=== PATIENT | female | born 1995 | race Caucasian/White ===

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

== ENCOUNTER 2017-06-02 13:18 | Emergency (ER) | payer SELFPAY ==
[~2017-06-02 13:18] MED LIST changes: +Sodium Chloride 0.9% 1,000 ML BAG ONE; -Sodium Chloride 0.9% 100 ML BAG ONE
[2017-06-02 15:24] LABS: Clarity Clear (Clear); Glucose, Urine (Dipstick) Negative (Negative); Leukocyte Trace (Negative); Nitrite Negative (Negative); Protein, Urine (Dipstick) 30 mg/dL (Neg-Trace)
[2017-06-02 15:25] LABS: Bacteria/HPF None Seen HPF (None Seen); Bilirubin Negative (Negative); Blood, Urine Trace (Negative); Pregnancy Test - Urine (BHCG) Negative (Negative); Pregu Control Background? CLEAR/WHITE (CLR/WHITE); Pregu Control Bar Appear? YES (CONTROL BAR); RBC/HPF 0-3 HPF (0-3); WBC/HPF 0-3 HPF (0-3)
--- NOTE | 2017-06-02 15:39 | CT ---
CT ABDOMEN NONCONTRAST CT PELVIS NONCONTRAST: (urolithiasis protocol) Date: 06/02/17 HISTORY: 22-year-old female with right flank pain for 5 days, recently worsening. TECHNIQUE: IV injection of iodinated contrast media: none Oral contrast media: none FINDINGS: Other than for urolithiasis, the lack of IV and oral contrast limits the evaluation. Kidneys: No nephrolithiasis or overt hydronephrosis. Ureters: No calculi. Bladder: No calculi. IMPRESSION: No urolithiasis. ida [] POS: [facility]
[2017-06-02] MEDS ORDERED: Morphine 4 MG/ML VIAL ONE ×3 (15:51→19:20)
[2017-06-02 16:06] LABS: #Basophils 0.1 thou/uL (0.0-0.2); #Lymphocytes 2.3 thou/uL (1.20-3.40); #Monocytes 0.5 thou/uL (0.11-0.59); #Neutrophils 7.4 thou/uL (1.40-6.50); %Basophils 0.7 % (0.0-1.0); %Eosinophils 0.4 % (0.0-10.0); %Lymphocytes 22.5 % (28.0-48.0); %Neutrophils 71.4 % (31.0-61.0); Hemoglobin 15.4 g/dL (12.0-16.0); Mean Corpuscular HGB CONC 35.2 g/dL (32.0-36.0); Mean Corpuscular Hemoglobin 32.8 pg (25.0-35.0); Mean Platelet Volume 8.5 fL (7.4-10.4); Platelet Count 204 thou/uL (130-400); RBC Distribution Width 11.3 % (11.5-14.5); White Blood Cell (WBC) Count 10.3 thou/uL (4.8-10.8)
[2017-06-02] MEDS ORDERED: Ondansetron HCl/PF 4 MG/2 ML Vial ONE (16:11)
[2017-06-02 16:23] LABS: ALT (SGPT) 13 U/L (8-55); AST (SGOT) 15 U/L (5-34); Albumin 4.5 g/dL (3.5-5.0); Alkaline Phosphatase 91 U/L (40-150); Anion Gap 16 mmol/L (10-20); BUN (Urea Nitrogen) 10 mg/dL (7.0-18.7); Bilirubin, Total 0.5 mg/dL (0.2-1.2); Calc. Creatinine Clearance 0 mL/min (70-130); Calcium 9.6 mg/dL (7.8-10.44); Carbon Dioxide 21 mmol/L (22-29); Chloride 106 mmol/L (98-107); Estimated GFR-MDRD Greater than 90; Globulin 3.4 g/dL (2.4-3.5); Glucose 86 mg/dL (70-105); Protein, Total 7.9 g/dL (6.0-8.3); Sodium 139 mmol/L (136-145)
--- NOTE | 2017-06-02 19:31 | CT ---
CT ABDOMEN AND PELVIS WITH CONTRAST 06/02/17 HISTORY: Pain. Right lower quadrant and flank pain. COMPARISON: CT stone protocol same day. FINDINGS: The lung bases are clear. No pericardial effusion. The appendix is visualized and is normal. No inflammatory stranding in the abdomen or pelvis. The urinary bladder is moderately distended. Both ovaries are visualized. No dilated loops of large or small bowel. No evidence for bowel obstruction. There is mild thickening of the terminal ileum. The aortoiliac contour is normal. The pancreas is unremarkable. The spleen, liver, and gallbladder ar e all unremarkable. The skeleton is unremarkable. IMPRESSION: 1. Normal appendix. 2. Mild mucosal edema and thickening of the terminal ileum suggests terminal ileitis. This may b e infectious or inflammatory. Inflammatory bowel disease can have this appearance. POS: [facility]
== END 2017-06-02 20:05 | disposition short-term general hospital (02) ==
LOC: MADERS 13:18
DX: K50.00 Crohn's disease of small intestine without complications (principal)
CPT/HCPCS: 36415; 74176; 74177; 80053; 81003; 81015; 81025; 83605; 85025; 96374; 96375; 96376; J2270; J2405; J7050

== ENCOUNTER 2017-06-12 09:55 | Emergency (ER) | payer SELFPAY ==
[~2017-06-12 09:55] MED LIST changes: -Iopamidol 370 76% 100 ML VIAL ONE
[2017-06-12] MEDS ORDERED: Ketorolac Tromethamine 30 MG/ML VIAL ONE (10:29)
[2017-06-12 10:37] LABS: #Eosinphils 0.2 thou/uL (0.0-0.7); #Monocytes 0.4 thou/uL (0.11-0.59); #Neutrophils 5.5 thou/uL (1.40-6.50); %Basophils 0.5 % (0.0-1.0); %Eosinophils 2.1 % (0.0-10.0); %Lymphocytes 24.4 % (28.0-48.0); %Monocytes 5.4 % (0.0-4.0); %Neutrophils 67.6 % (31.0-61.0); Hemoglobin 14.7 g/dL (12.0-16.0); Mean Corpuscular HGB CONC 35.1 g/dL (32.0-36.0); Mean Corpuscular Hemoglobin 32.5 pg (25.0-35.0); Mean Corpuscular Volume 92.5 fl (77.0-87.0); Platelet Count 201 thou/uL (130-400); RBC Distribution Width 11.6 % (11.5-14.5); Red Blood Cell (RBC) Count 4.52 mill/uL (4.00-5.20); White Blood Cell (WBC) Count 8.2 thou/uL (4.8-10.8)
[2017-06-12 10:42] LABS: BHCG - Serum Negative (NEGATIVE); Pregs Control Background? CLEAR/WHITE (CLR/WHITE); Pregs Control Bar Appear? YES (CONTROL BAR)
[2017-06-12] MEDS ORDERED: Ondansetron HCl/PF 4 MG/2 ML Vial ONE (10:51)
[2017-06-12 10:53] LABS: ALT (SGPT) 20 U/L (8-55); AST (SGOT) 24 U/L (5-34); Albumin 4.1 g/dL (3.5-5.0); Alkaline Phosphatase 90 U/L (40-150); Anion Gap 14 mmol/L (10-20); BUN (Urea Nitrogen) 10 mg/dL (7.0-18.7); Calc. Creatinine Clearance 0 mL/min (70-130); Carbon Dioxide 21 mmol/L (22-29); Chloride 108 mmol/L (98-107); Estimated GFR-MDRD Greater than 90; Glucose 96 mg/dL (70-105); Lipase 14 U/L (8-78); Protein, Total 7.1 g/dL (6.0-8.3); Sodium 139 mmol/L (136-145)
[2017-06-12 10:59] LABS: Bilirubin, Total 0.4 mg/dL (0.2-1.2)
[2017-06-12 11:14] LABS: Bilirubin Negative (Negative); Blood, Urine Negative (Negative); Clarity Clear (Clear); Glucose, Urine (Dipstick) Negative (Negative); Leukocyte Negative (Negative); Nitrite Negative (Negative); Protein, Urine (Dipstick) Negative (Neg-Trace); Urobilinogen 0.2 mg/dL (0.2-1.0)
[2017-06-12] MEDS ORDERED: Morphine 4 MG/ML VIAL ONE ×4 (11:24→14:16)
[2017-06-12] MEDS ORDERED: Iopamidol 370 76% 100 ML VIAL ONE (12:42)
[2017-06-12] MEDS ORDERED: Fentanyl 100 MCG/2 ML VIAL ONE (14:54)
--- NOTE | 2017-06-12 15:33 | CT ---
ABDOMEN AND PELVIS CT WITH CONTRAST: Date: 06/12/17 COMPARISON: 06/02/17. INDICATION: Pain. FINDINGS: There is no consolidation at the lung base. Solid abdominal organs are grossly unremarkable. Bowel is not reliably assessed without enteric contrast administration. There is marked distention of the vanessa pacified urinary bladder. Trace free pelvic fluid is present, which may be physiologic, given patient 's age. There is no acute osseous pathology. IMPRESSION: 1. No acute abnormality identified. 2. There is limited evaluation of the bowel without enteric contrast. 3. Prominent distention of urinary bladder. Correlate clinically. POS: [facility]
[2017-06-15 01:57] LABS: Chlamydia by PCR Not Detected (NotDetected); GC by PCR Not Detected (NotDetected)
== END 2017-06-12 15:19 | disposition short-term general hospital (02) ==
LOC: MADERS 09:55
DX: R10.2 Pelvic and perineal pain (principal); F32.9 Major depressive disorder, single episode, unspecified; F17.210 Nicotine dependence, cigarettes, uncomplicated
CPT/HCPCS: 74177; 80053; 81003; 83690; 84703; 85025; 87491; 87591; 96361; 96374; 96375; 96376; J1885; J2270; J2405; J3010; J7050

== ENCOUNTER 2017-07-04 15:21 | Emergency (ER) | payer BC, MEDICAID, SELFPAY ==
[~2017-07-04 15:21] MED LIST changes: +Iopamidol 370 76% 125 ML VIAL FS ONE
[2017-07-04] MEDS ORDERED: Morphine 4 MG/ML VIAL ONE ×2 (15:43→16:44)
[2017-07-04] MEDS ORDERED: Ondansetron HCl/PF 4 MG/2 ML Vial ONE (15:44)
[2017-07-04] MEDS ORDERED: Ketorolac Tromethamine 30 MG/ML VIAL ONE (15:44)
[2017-07-04 15:56] LABS: #Basophils 0.1 thou/uL (0.0-0.2); #Eosinphils 0.1 thou/uL (0.0-0.7); #Monocytes 0.6 thou/uL (0.11-0.59); #Neutrophils 4.8 thou/uL (1.40-6.50); %Basophils 0.7 % (0.0-1.0); %Eosinophils 0.9 % (0.0-10.0); %Monocytes 7.7 % (0.0-4.0); %Neutrophils 63.7 % (31.0-61.0); Hemoglobin 14.9 g/dL (12.0-16.0); Mean Corpuscular HGB CONC 34.8 g/dL (32.0-36.0); Mean Corpuscular Hemoglobin 32.8 pg (25.0-35.0); Mean Corpuscular Volume 94.3 fl (77.0-87.0); Mean Platelet Volume 8.5 fL (7.4-10.4); Platelet Count 174 thou/uL (130-400); Red Blood Cell (RBC) Count 4.54 mill/uL (4.00-5.20); White Blood Cell (WBC) Count 7.5 thou/uL (4.8-10.8)
[2017-07-04 16:06] LABS: Bilirubin Negative (Negative); Blood, Urine Trace (Negative); Clarity Clear (Clear); Glucose, Urine (Dipstick) Negative (Negative); Leukocyte Negative (Negative); Nitrite Negative (Negative); Protein, Urine (Dipstick) Negative (Neg-Trace); Urobilinogen 0.2 mg/dL (0.2-1.0)
[2017-07-04 16:09] LABS: RBC/HPF 0-3 HPF (0-3)
[2017-07-04 16:10] LABS: Bacteria/HPF Rare-Few HPF (None Seen); Squamous Epithelial 0-3 HPF (0-3); WBC/HPF 0-3 HPF (0-3)
[2017-07-04 16:11] LABS: AST (SGOT) 13 U/L (5-34); Alkaline Phosphatase 85 U/L (40-150); Anion Gap 13 mmol/L (10-20); BUN (Urea Nitrogen) 6 mg/dL (7.0-18.7); Bilirubin, Total 0.4 mg/dL (0.2-1.2); Calc. Creatinine Clearance 0 mL/min (70-130); Calcium 8.5 mg/dL (7.8-10.44); Carbon Dioxide 24 mmol/L (22-29); Chloride 108 mmol/L (98-107); Estimated GFR-MDRD Greater than 90; Globulin 2.8 g/dL (2.4-3.5); Glucose 94 mg/dL (70-105); Lipase 12 U/L (8-78); Potassium 3.6 mmol/L (3.5-5.1); Protein, Total 6.8 g/dL (6.0-8.3); Sodium 141 mmol/L (136-145)
[2017-07-04 16:44] LABS: ALT (SGPT) 10 U/L (8-55)
--- NOTE | 2017-07-04 17:16 | CT ---
CT CHEST AND ABDOMEN AND PELVIS WITH IV CONTRAST: INDICATIONS: A 22-kg-old female with abdominal tenderness and rib pain. The patient is also complaining of right upper quadrant abdominal pain. COMPARISON: CT abdomen and pelvis dated 06/12/2017. FINDINGS: No focal consolidation, pleural effusion, or pneumothorax is evident. No enlarged lymph nodes are pr esent. The heart and great vessels appear within normal limits. No focal hepatic lesion is evident. The visualized aspects of the gallbladder, pancreas, spleen, adr enal glands, and kidneys appear within normal limits. No hydronephrosis is evident. No free fluid i s demonstrated. There is a normal appendix in the right lower quadrant. No free fluid is evident. The bladder, rect um, and perirectal soft tissues appear within normal limits. There is mild thoracolumbar scoliosis. There is a healing right transverse process fracture of L3. IMPRESSION: 1. Healing right L3 transverse process fracture. 2. No acute cardiopulmonary abnormalities demonstrated. 3. No definite acute intraabdominal abnormality or intrapelvic abnormality is seen. POS: [facility]
== END 2017-07-04 17:30 | disposition home or self-care (01) ==
LOC: MADERS 15:21
DX: S22.31XA Fracture of one rib, right side, initial encounter for closed fracture (principal); F17.210 Nicotine dependence, cigarettes, uncomplicated; W19.XXXA Unspecified fall, initial encounter
CPT/HCPCS: 36415; 71260; 74177; 80053; 81001; 82150; 83690; 85025; 87086; 96361; 96374; 96375; 96376; J1885; J2270; J2405; J7050

== ENCOUNTER 2017-07-07 21:13 | Emergency (ER) | payer BC, MEDICAID ==
[2017-07-07] MEDS ORDERED: Ketorolac Tromethamine 60 MG/2 ML VIAL ONE (22:11)
[2017-07-07] MEDS ORDERED: Ondansetron ODT 4 MG TAB ONE (22:11)
[2017-07-07 22:15] LABS: #Basophils 0.1 thou/uL (0.0-0.2); #Eosinphils 0.1 thou/uL (0.0-0.7); #Lymphocytes 2.7 thou/uL (1.20-3.40); #Monocytes 0.8 thou/uL (0.11-0.59); #Neutrophils 11.5 thou/uL (1.40-6.50); %Basophils 0.6 % (0.0-1.0); %Eosinophils 0.7 % (0.0-10.0); %Lymphocytes 17.8 % (28.0-48.0); %Monocytes 5.1 % (0.0-4.0); %Neutrophils 75.8 % (31.0-61.0); Hemoglobin 14.7 g/dL (12.0-16.0); Mean Corpuscular HGB CONC 34.8 g/dL (32.0-36.0); Mean Corpuscular Hemoglobin 32.4 pg (25.0-35.0); Mean Corpuscular Volume 93.2 fl (77.0-87.0); Mean Platelet Volume 8.6 fL (7.4-10.4); Platelet Count 210 thou/uL (130-400); RBC Distribution Width 12.1 % (11.5-14.5); Red Blood Cell (RBC) Count 4.53 mill/uL (4.00-5.20); White Blood Cell (WBC) Count 15.2 thou/uL (4.8-10.8)
[2017-07-07 22:19] LABS: Bilirubin Negative (Negative); Blood, Urine Small (Negative); Glucose, Urine (Dipstick) Negative (Negative); Leukocyte Negative (Negative); Nitrite Negative (Negative); Protein, Urine (Dipstick) Trace mg/dL (Neg-Trace); Specific Gravity, Urine 1.025 (1.005-1.030); Urobilinogen 0.2 mg/dL (0.2-1.0)
[2017-07-07 22:22] LABS: Pregnancy Test - Urine (BHCG) Negative (Negative); Pregu Control Background? CLEAR/WHITE (CLR/WHITE); Pregu Control Bar Appear? YES (CONTROL BAR); Specific Gravity 1.025 (1.002-1.036)
[2017-07-07 22:27] LABS: Anion Gap 15 mmol/L (10-20); BUN (Urea Nitrogen) 20 mg/dL (7.0-18.7); Calc. Creatinine Clearance 0 mL/min (70-130); Calcium 9.7 mg/dL (7.8-10.44); Carbon Dioxide 23 mmol/L (22-29); Chloride 106 mmol/L (98-107); Estimated GFR-MDRD 89; Glucose 89 mg/dL (70-105); Potassium 4.1 mmol/L (3.5-5.1); Sodium 140 mmol/L (136-145)
[2017-07-07 22:27] LABS: Clarity Hazy (Clear)
[2017-07-07 22:37] LABS: WBC/HPF 0-3 HPF (0-3)
[2017-07-07 22:38] LABS: Bacteria/HPF Rare-Few HPF (None Seen)
--- NOTE | 2017-07-07 22:58 | RAD ---
CHEST ONE VIEW TWO VIEWS ABDOMEN 07/07/17 HISTORY: Rib pain. Cough. COMPARISON: None. FINDINGS: ONE VIEW CHEST: Normal cardiac silhouette. Pulmonary vessels and hilum are normal. Costophrenic angles are clear. No mass. No consolidation. No pneumothorax or osseous abnormalities. ABDOMEN TWO VIEWS: Nonspecific bowel gas pattern. Fecal material in a nondistended, nondilated colon. No suspicious dens ities in the abdomen or pelvis. No pneumoperitoneum. Mild leftward curvature of the lumbar spine. IMPRESSION: 1. No acute cardiopulmonary process. 2. Nonspecific bowel gas pattern. POS: [facility]
== END 2017-07-07 23:00 | disposition home or self-care (01) ==
LOC: MADERS 21:13
DX: J06.9 Acute upper respiratory infection, unspecified (principal); R07.81 Pleurodynia; K59.00 Constipation, unspecified; F17.210 Nicotine dependence, cigarettes, uncomplicated
CPT/HCPCS: 36415; 74022; 80048; 81003; 81015; 81025; 85025; 96372; J1885; Q0162

== ENCOUNTER 2019-02-08 10:20 | Emergency (ER) | payer MEDICAID ==
[2019-02-08] MEDS ORDERED: Prochlorperazine 10 MG/2 ML VIAL ONE (10:39)
[2019-02-08 10:47] LABS: Bilirubin Negative (Negative); Blood, Urine Small (Negative); Clarity Clear (Clear); Glucose, Urine (Dipstick) Negative (Negative); Leukocyte Trace (Negative); Nitrite Positive (Negative); Protein, Urine (Dipstick) Negative (Neg-Trace); Urobilinogen 0.2 mg/dL (Less than 2)
[2019-02-08 10:53] LABS: Bacteria/HPF 2+ HPF (None Seen); Pregnancy Test - Urine (BHCG) Negative (Negative); RBC/HPF 0-3 HPF (0-3)
[2019-02-08 10:54] LABS: Pregu Control Background? CLEAR/WHITE (CLR/WHITE); Pregu Control Bar Appear? YES (CONTROL BAR); Specific Gravity 1.024 (1.002-1.036)
[2019-02-08] MEDS ORDERED: Sodium Chloride 0.9% 1,000 ML ONE (11:14)
[2019-02-08 11:23] LABS: #Basophils 0.1 thou/uL (0.0-0.2); #Eosinphils 0.1 thou/uL (0.0-0.7); #Lymphocytes 0.6 thou/uL (1.20-3.40); #Monocytes 0.7 thou/uL (0.11-0.59); #Neutrophils 14.5 thou/uL (1.40-6.50); %Basophils 0.6 % (0.0-1.0); %Eosinophils 0.5 % (0.0-10.0); %Lymphocytes 3.4 % (21.0-51.0); %Monocytes 4.6 % (0.0-10.0); %Neutrophils 90.9 % (42.0-75.0); Hemoglobin 14.4 g/dL (12.0-16.0); Mean Corpuscular HGB CONC 34.3 g/dL (32.0-36.0); Mean Corpuscular Hemoglobin 30.5 pg (27.0-31.0); Mean Corpuscular Volume 88.9 fL (78.0-98.0); Mean Platelet Volume 7.4 fL (7.4-10.4); Platelet Count 155 thou/uL (130-400); RBC Distribution Width 10.9 % (11.5-14.5); Red Blood Cell (RBC) Count 4.71 mill/uL (4.20-5.40); White Blood Cell (WBC) Count 15.9 thou/uL (4.8-10.8)
[2019-02-08 11:37] LABS: ALT (SGPT) 9 U/L (8-55); AST (SGOT) 15 U/L (5-34); Albumin 4.5 g/dL (3.5-5.0); Alkaline Phosphatase 85 U/L (40-150); Anion Gap 15 mmol/L (10-20); BUN (Urea Nitrogen) 15 mg/dL (7.0-18.7); Bilirubin, Total 0.5 mg/dL (0.2-1.2); Calc. Creatinine Clearance 0 mL/min (70-130); Carbon Dioxide 22 mmol/L (22-29); Chloride 107 mmol/L (98-107); Estimated GFR-MDRD Greater than 90; Globulin 3.2 g/dL (2.4-3.5); Glucose 104 mg/dL (70-105); Potassium 4.2 mmol/L (3.5-5.1); Protein, Total 7.7 g/dL (6.0-8.3); Sodium 140 mmol/L (136-145)
[2019-02-08] MEDS ORDERED: cefTRIAXone\\ROCEPHIN 1 GM VIAL ONE (11:40)
[2019-02-08] MEDS ORDERED: Sodium Chloride 0.9% 100 ML ONE (11:40)
== END 2019-02-08 12:23 | disposition home or self-care (01) ==
LOC: MADERS 10:20
DX: N12 Tubulo-interstitial nephritis, not specified as acute or chronic (principal); K52.9 Noninfective gastroenteritis and colitis, unspecified; F41.9 Anxiety disorder, unspecified; F32.9 Major depressive disorder, single episode, unspecified; F17.210 Nicotine dependence, cigarettes, uncomplicated
CPT/HCPCS: 80053; 81003; 81015; 81025; 83605; 85025; 87077; 87086; 87186; 96361; 96365; 96372; J0696; J0780; J3490; J7050